=== PATIENT | female | born 1975 | race Caucasian/White ===

== ENCOUNTER 2017-07-27 15:24 | Emergency (ER) | payer OTHER ==
[~2017-07-27] VITALS: Ht 167.6 cm; Wt 59.0 kg
[~2017-07-27 15:24] MED LIST: AUGMENTIN 875875 MG PO; HYDROCODON-ACE1 EAC7 PO; IBUPROFEN 600600 M1 PO; MEDROLDOSEPACK PO; MOBIC7.5 MG PO; MUCINEX TA600 MG/TA2 PO; PROMETH-CODEIN 65 ML PO; VENTOLIN HFA 1818 GM INH; ZOFRAN ODT4 MG PO; ZPAK PO
[2017-07-27] MEDS ORDERED: ZANAFLEX2 MG PO (15:34)
[2017-07-27] MEDS ORDERED: TRAMADOL100 MG PO (15:34)
[2017-07-27] MEDS ORDERED: MOBIC7.5 MG PO (16:56)
[2017-07-27] MEDS ORDERED: ACETAMINOPHEN-1 EAC1 PO (16:56)
[2017-07-27] MEDS ORDERED: FLEXERIL PO (16:56)
[2017-07-27 17:23] VITALS: BP 117/79
== END 2017-07-27 17:25 | disposition home or self-care (01) ==
LOC: M.ERS 15:24
DX: S16.1XXA Strain of muscle, fascia and tendon at neck level, initial encounter (principal); Z88.7 Allergy status to serum and vaccine; X58.XXXA Exposure to other specified factors, initial encounter; Y93.89 Activity, other specified; Y92.89 Other specified places as the place of occurrence of the external cause; Y99.8 Other external cause status

== ENCOUNTER 2018-08-05 21:08 | Emergency (ER) | payer BC ==
[~2018-08-05] VITALS: Ht 167.6 cm; Wt 68.0 kg
[~2018-08-05 21:08] MED LIST changes: +ACETAMINOPHEN-1 EAC1 PO; +FLEXERIL PO; +TRAMADOL100 MG PO; +ZANAFLEX2 MG PO
[2018-08-05] MEDS ORDERED: FLEXERIL PO (21:37)
[2018-08-05] MEDS ORDERED: MOBIC15 MG PO (21:37)
[2018-08-05 22:16] VITALS: BP 133/80
== END 2018-08-05 22:15 | disposition home or self-care (01) ==
LOC: M.ERS 21:08
DX: G89.29 Other chronic pain (principal); M54.6 Pain in thoracic spine; Z88.7 Allergy status to serum and vaccine

== ENCOUNTER 2021-01-25 16:11 | Emergency (ER) | payer OTHER ==
[~2021-01-25] VITALS: Ht 167.6 cm; Wt 63.5 kg
[~2021-01-25 16:11] MED LIST changes: +MOBIC15 MG PO
[2021-01-25 17:24] VITALS: BP 118/74
== END 2021-01-25 17:26 | disposition left against medical advice (07) ==
LOC: M.ERS 16:11
DX: M54.9 Dorsalgia, unspecified (principal); Z53.21 Procedure and treatment not carried out due to patient leaving prior to being seen by health care provider; Z88.7 Allergy status to serum and vaccine; Z91.09 Other allergy status, other than to drugs and biological substances